=== PATIENT | female | born 1975 | race Caucasian/White ===

== ENCOUNTER → 2017-12-06 | Outpatient (CLI) | payer OTHER ==
[2017-12-06 10:18] VITALS: BP 150/107; PULSE 90; RESP 18; TEMP 96.7; BMI 36.1
--- NOTE | 2017-12-06 11:24 | P.HPOB ---
History of Present Illness H&P Date: 12/06/17 Chief Complaint: Patient is here for her routine gynecologic exam and mammogram. This is a 42-year-old G2 PII with an LMP of 11/28/2017. She has a Paragard IUD in place. She is here to establish with this office. She states it was inserted around 9 years ago and will be due to be changed later this year. She states or periods are fairly heavy especially on the 2nd to 4th day of her menses. She has to change your protection up to every 30 minutes on those heavy days. It is been about 2 years since her last pelvic exam. She is no longer interested in having children. Review of Systems She has lost 60 pounds with diet exercise and Adipex. She denies respiratory, cardiac, or G.I. problems. Past Medical History Past Medical History: GERD/Reflux, Thyroid Disorder Additional Past Medical History / Comment(s): occasional vomiting also History of Any Multi-Drug Resistant Organisms: None Reported Additional Past Surgical History / Comment(s): wisdom teeth removed, carpal tunnel release bilateral 2017, Heightoff Past Anesthesia/Blood Transfusion Reactions: No Reported Reaction Past Psychological History: No Psychological Hx Reported Smoking Status: Never smoker Past Alcohol Use History: Occasional Past Drug Use History: None Reported - Past Family History Mother Family Medical History: Hypertension Father History Unknown: Yes Medications and Allergies Home Medications Medication Instructions Recorded Confirmed Type Levothyroxine Sodium [Synthroid] 150 mcg PO DAILY 03/03/16 12/06/17 History Omeprazole 20 mg PO DAILY #90 cap 03/09/16 12/06/17 Rx Phentermine HCl [Adipex-P] 37.5 mg PO QAM 12/06/17 12/06/17 History buPROPion HCL [Wellbutrin XL] 300 mg PO DAILY 12/06/17 12/06/17 History Allergies Allergy/AdvReac Type Severity Reaction Status Date / Time No Known Allergies Allergy Verified 12/06/17 10:32 Exam - Vital Signs Vital signs: Vital Signs Temp Pulse Resp BP 12/06/17 10:12 96.7 F L 90 18 150/107 Intake and Output 12/05/17 12/06/17 12/06/17 22:59 06:59 14:59 Other: Weight 101.605 kg Patient Weight 12/07/17 06:59 Weight 101.605 kg Height 5'6". BMI 36. This is a well-developed heavyset white female who is alert and oriented times 3 in no acute distress. HEENT: Within normal limits. NECK: Supple without mass or thyromegaly. CHEST AND LUNGS: Clear to auscultation. HEART: Regular rate and rhythm. BREASTS: Are without mass or discharge. AXILLARY EXAM: Negative for adenopathy. BACK: Negative for CVA tenderness. ABDOMEN: Soft, nontender, without palpable masses. PELVIC EXAM: Normal external genitalia. Cervix reveals an IUD string protruding from the cervix approximately 1.5 cm. The vagina appears normal with no unusual discharge. There is no evidence of prolapse. The uterus is midposition , nongravid size and nontender. There are no palpable adnexal masses or tenderness. RECTAL EXAM: negative for mass or tenderness and is negative for occult blood. EXTREMITIES: Nontender. IMPRESSION: 1. 42-year-old gynecologic healthy female doing well with the ParaGard IUD. 2. Elevated blood pressure. 3. Undesired fertility. 4. Mild hypermenorrhea. This may be related to the ParaGard IUD. PLAN: 1. Pap smear was performed. 2. Self breast examination was discussed. 3. GC and Chlamydia screening from the cervix was obtained. 4. Trial of meclofenamate sodium 100 mg TID PRN for heavy menstrual flow up to 6 days per cycle. 5. We have discussed control options including the Mirena IUD and tubal sterilization as well as vasectomy for her partner. She would like a referral for tubal sterilization. She will also consider the Mirena IUD as a 2nd option. We will make a referral for this. 6. Baseline screening mammogram will be done today. 7. She will return in one year.
--- NOTE | 2017-12-06 11:45 | MM ---
Reason for exam: screening (asymptomatic). Baseline mammogram. Physical Findings: Dr. Parnell did not find any significant physical abnormalities on exam. MG Screening Mammo w CAD Bilateral CC and MLO view(s) were taken. There are scattered fibroglandular densities. There is no discrete abnormality. These results were verbally communicated with the patient and result sheet given to the patient on 12/06/17. ASSESSMENT: Negative, BI-RAD 1 RECOMMENDATION: Routine screening mammogram of both breasts in 1 year.
[2017-12-07 16:21] LABS: C. trachomatis,PCR Negative (Neg,Equiv); Chlamydia trachomatis Source Cervix; N. gonorrhoeae,PCR Negative (Neg,Equiv); Neisseria Source Cervix
== END | disposition home or self-care (01) ==
LOC: WWCWWP 09:44
PROVIDERS: ATTEND Obstetrics & Gynecology
DX: Z12.31 Encounter for screening mammogram for malignant neoplasm of breast (principal)
CPT/HCPCS: 77067; 87491; 87591

== ENCOUNTER → 2018-01-08 | Outpatient (CLI) | payer OTHER ==
[2018-01-08 10:53] LABS: Basophils # (A) 0.1 k/uL (0-0.2); Basophils % (A) 1 %; Eosinophils # (A) 0.3 k/uL (0-0.7); Eosinophils % (A) 2 %; HCT 41.5 % (34.0-46.0); HGB 12.9 gm/dL (11.4-16.0); Hypochromasia Slight; Lymphocytes # (A) 2.6 k/uL (1.0-4.8); Lymphocytes % (A) 24 %; MCH 25.8 pg (25.0-35.0); MCHC 31.1 g/dL (31.0-37.0); MCV 82.8 fL (80.0-100.0); Mean Platelet Volume 7.8; Monocytes # (A) 0.4 k/uL (0-1.0); Monocytes % (A) 4 %; Neutrophils # (A) 7.2 k/uL (1.3-7.7); Neutrophils % (A) 68 %; Platelet Count 367 k/uL (150-450); RBC 5.01 m/uL (3.80-5.40); RDW 14.6 % (11.5-15.5); WBC 10.6 k/uL (3.8-10.6)
== END | disposition home or self-care (01) ==
LOC: LABPAT 10:30
PROVIDERS: ATTEND Obstetrics & Gynecology Obstetrics
DX: Z01.812 Encounter for preprocedural laboratory examination (principal); N92.0 Excessive and frequent menstruation with regular cycle
CPT/HCPCS: 36415; 85025

== ENCOUNTER 2018-01-22 06:03 | Day surgery (SDC) | payer OTHER ==
[2018-01-11 15:17] VITALS: BMI 35.0
[~2018-01-22 06:03] MED LIST: DEXAMETHASONE SOD PHOSPHATE 10 MG/ML 1 ML VIAL IV ONE; LACTATED RINGERS 1,000 ML IV SCH; ONDANSETRON ODT 4 MG TAB PO ONE; Pre Op ABX Message 1 EACH MISC MISCELLANE ONE
[2018-01-22] MEDS ORDERED: LIDOCAINE 1% 20 ML VIAL (10MG/ML) FOR IV START INTRADERMA ONE (06:45)
[2018-01-22] MEDS ORDERED: BUPIVACAINE (PF) 0.25% 30 ML VIAL SQ ONE ×3 (07:40→08:05)
[2018-01-22] MEDS ORDERED: LIDOCAINE 2% GEL 5 ML TUBE TOPICAL ONE ×2 (07:49→08:05)
[2018-01-22] MEDS ORDERED: KETOROLAC 30 MG/ML 1 ML VIAL ONE (07:50)
[2018-01-22] MEDS ORDERED: LIDOCAINE 1% INJ 10MG/ML (20 ML MDV) ONE (07:50)
[2018-01-22] MEDS ORDERED: NEOSTIGMINE 1 MG/ML 10 ML VIAL ONE (07:50)
[2018-01-22] MEDS ORDERED: fentaNYL (PF) 50 MCG/ML 2 ML AMP ONE (07:50)
[2018-01-22] MEDS ORDERED: PROPOFOL 10 MG/ML 20 ML VIAL IV ONE (07:50)
[2018-01-22] MEDS ORDERED: ROCURONIUM BROMIDE 10 MG/ML 10 ML VIAL IV ONE (07:50)
[2018-01-22] MEDS ORDERED: GLYCOPYRROLATE 0.2 MG/ML 2 ML VIAL ONE (07:50)
[2018-01-22] MEDS ORDERED: SUCCINYLCHOLINE CHLORIDE 100 MG/5 ML SYR IV ONE (07:50)
[2018-01-22] MEDS ORDERED: MIDAZOLAM 2 MG/2 ML VIAL ONE (07:50)
[2018-01-22 08:53] VITALS: TEMP 97.7
[2018-01-22] MEDS ORDERED: ONDANSETRON 4 MG/2 ML VIAL IVP ONE (09:04)
[2018-01-22] MEDS: MORPHINE SULFATE 4 MG/0.8 ML SYRINGE (INJ) IV PRN ×2 (09:04→09:11)
[2018-01-22] MEDS ORDERED: LACTATED RINGERS 1,000 ML IV ONE (09:15)
[2018-01-22] MEDS ORDERED: MEPERIDINE 50 MG/ML SYRINGE IVP ONE (09:21)
--- NOTE | 2018-01-22 09:41 | P.OP ---
Date of Procedure: 01/22/18 Preoperative Diagnosis: Menorrhagia, family status complete, undesired fertility Postoperative Diagnosis: Same Procedure(s) Performed: Laparoscopic tubal ligation with Falope-Rings, endometrial ablation with NovaSure, hysteroscopy, dilation and curettage Anesthesia: SVETLANA Surgeon: Heidy Valencia Estimated Blood Loss (ml): 10 IV fluids (ml): 600 Urine output (ml): 100 Pathology: other (Endometrial curettings) Condition: stable Disposition: PACU Indications for Procedure: Heavy menstrual bleeding, family status complete Operative Findings: Normal uterus tubes and ovaries were appreciated grossly on laparoscopy, the endometrial cavity was normal in nature with a proliferative endometrium, IUD was removed prior to the procedure. Total cavity length of 5 with a 3.9 power of 107 total cycle time 75 seconds Description of Procedure: Patient was seen in the preoperative area and informed consent was obtained. Risks were reviewed including but not not limited to infection, bleeding, damage to bladder, bowel, uterine perforation. Patient stated understanding and informed consent was obtained. Next Patient was taken to the operating room where general anesthesia was obtained without difficulty by the anesthesia department. She was prepped and draped in the normal sterile fashion in the dorsal lithotomy position. A red rubber catheter was then used to drain the bladder of clear yellow urine. A weighted speculum was placed in the posterior vaginal vault the anterior lip of the cervix was visualized and grasped with a single-tooth tenaculum. An acorn uterine manipulator was advanced into the cervix as a means to manipulate the uterus throughout the procedure. Next attention was then turned to the patient' s abdomen where the umbilical fold a small skin incision is made. At this point I decreased needle is placed into the incision and toward the peritoneum once the Veress needle was deemed to be in the appropriate position with a drop in CO2 pressure with insufflation of CO2 gas CO2 insufflation was allowed to occur. 4 L of gas were used to obtain pneumoperitoneum. At this point a 5 mm trocar and sleeve with a global ceo scope in place placed through the skin incision and toward the pneumoperitoneum under direct visualization. The above noted findings were then visualized. A second port site was placed in the right lower quadrant this is an 8 mm port placed under direct visualization. The Falope ring applicator was then placed through this incision and the left fallopian tube was grasped and operated according to Falope ring message and delivery service pricer instructions. This was then repeated in the opposite side. Hemostasis was appreciated both fallopian tubes were occluded pictures were taken. All incisions were then removed from the patient's abdomen and the skin incisions were closed with 4-0 Vicryl in a subcuticular infection fashion, strips and sterile dressings were applied as needed. Attention then turned to the patient's vaginal vault the strings from the prior ParaGard IUD were visualized and this was removed intact without difficulty with a ring forceps. The endocervical canal was then dilated to 18-[place], and hysteroscope was placed through the cervix and toward the endometrial cavity a proliferative cavity was noted. Pictures were taken and the hysteroscope was removed and sharp curettage was then performed until gritty texture was noted all 4 quadrants of the uterine cavity. The NovaSure device was then opened and set to the uterine measurements. After a cavity assessment was completed the NovaSure cycle was allowed to complete for a total of 75 seconds. Afterwards the NovaSure device was removed without difficulty the single-tooth tenaculum was taken off of the anterior lip of the cervix and hemostasis was appreciated. COUNTS were correct 2 patient tolerated procedure well and was taken to the recovery room awake in stable condition.
[2018-01-22] MEDS ORDERED: Acetaminophen-Codeine 300-30mg TAB PO ONE (10:02)
[2018-01-22 10:54] VITALS: RESP 18
[2018-01-22 11:52] VITALS: BP 120/65; PULSE 66
== END 2018-01-22 11:35 | disposition home or self-care (01) ==
LOC: OR 06:03
PROVIDERS: ATTEND Obstetrics & Gynecology Obstetrics
DX: N92.0 Excessive and frequent menstruation with regular cycle (principal); Z30.2 Encounter for sterilization; Z30.432 Encounter for removal of intrauterine contraceptive device; K21.9 Gastro-esophageal reflux disease without esophagitis; I10 Essential (primary) hypertension; E07.9 Disorder of thyroid, unspecified; Z79.83 Long term (current) use of bisphosphonates; Z79.890 Hormone replacement therapy; Z79.899 Other long term (current) drug therapy
CPT/HCPCS: 81025; 88305; 58671; 58563; J2250; J1100; J2710; J2175; J2405; J2001; J3010; J1885; J0330; J2704; J2270

== ENCOUNTER → 2020-11-24 | Outpatient (CLI) | payer OTHER ==
--- NOTE | 2020-11-24 17:23 | P.HPOB ---
History of Present Illness H&P Date: 11/24/20 Chief Complaint: The patient is here for her routine gynecologic exam. This is a 45-year-old with an LMP of 2018. The patient is status post tubal ligation and endometrial ablation done in 2018. She states she has not had menstrual flow since her ablation and has had rare spotting after the ablation. She does feel warm frequently but no significant hot flashes. She has been experiencing urinary leakage with laughing, coughing, sneezing, or standing up. She has also noticed some leakage at night where she wakes up wet. She denies any significant urge incontinence. Review of Systems She has lost about 20 pounds over the past 3 years. She denies respiratory, cardiac, or GI problems. : Some stress urinary incontinence as in the HPI. Past Medical History Past Medical History: GERD/Reflux, Thyroid Disorder History of Any Multi-Drug Resistant Organisms: None Reported Past Surgical History: Uterine Ablation Additional Past Surgical History / Comment(s): wisdom teeth removed, carpal tunnel release bilateral 2016. D&C, H/S, Novasure endometrial ablation 2018. Past Anesthesia/Blood Transfusion Reactions: No Reported Reaction Past Psychological History: No Psychological Hx Reported Smoking Status: Never smoker Past Alcohol Use History: Rare (5 per year) Past Drug Use History: None Reported Additional History: She is single and has been with her partner since 2005. They live together. 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 - Past Family History Mother Family Medical History: Hypertension Father History Unknown: Yes Medications and Allergies Home Medications Medication Instructions Recorded Confirmed Type Levothyroxine Sodium [Synthroid] 175 mcg PO DAILY 03/03/16 11/24/20 History buPROPion HCL [Wellbutrin XL] 300 mg PO DAILY 12/06/17 11/24/20 History Nf-Losartan Dose Unknown 1 tab PO QAM 01/11/18 11/24/20 History Omeprazole 20 mg PO DAILY PRN 01/11/18 11/24/20 History Lisdexamfetamine Dimesylate 40 mg PO QAM 11/24/20 11/24/20 History [Vyvanse] Allergies Allergy/AdvReac Type Severity Reaction Status Date / Time No Known Allergies Allergy Verified 11/24/20 15:57 Exam Vital Signs Temp Pulse Resp BP Pulse Ox 11/24/20 15:57 98.5 F 85 18 141/94 100 Intake and Output 11/24/20 11/24/20 11/24/20 06:59 14:59 22:59 Other: Weight 110.677 kg Height 5 feet 6 inches, weight 244 pounds, BMI 39.4. This is a well-developed well-nourished heavyset white female who is alert and oriented times 3 in no acute distress. HEENT: Within normal limits. NECK: Supple without mass or thyromegaly. CHEST AND LUNGS: Clear to auscultation. HEART: Regular rate and rhythm. BREASTS: Are without mass or discharge. AXILLARY EXAM: Negative for adenopathy. BACK: Negative for CVA tenderness. ABDOMEN: Soft, nontender, without palpable masses. PELVIC EXAM: Normal external genitalia. Cervix and vagina appear normal. There is no unusual discharge. There is no evidence of prolapse. There is no evidence of cystocele at rest or with Valsalva. There is mild urethral mobility with cough and Valsalva. No urinary leakage was demonstrated. The uterus is midposition, nongravid size and nontender. There are no palpable adnexal masses or tenderness. RECTAL EXAM: Rectovaginal exam is negative for mass or tenderness and is negative for occult blood. There is good sphincter tone. EXTREMITIES: Nontender. IMPRESSION: 1. 45-year-old female status post tubal ligation and has been amenorrheic since her endometrial ablation. 2. Normal gynecologic exam. 3. Stress urinary incontinence with mild urethral mobility with no evidence of cystocele. PLAN: 1. Pap smear cotest was performed. 2. Self breast awareness was discussed with the patient. 3. Screening mammogram is due and the order slip was given to the patient for this. 4. We have had a long discussion regarding urinary incontinence including the different types of incontinence as well as possible treatments. At this time I am recommending nonsurgical management with kegal exercises and timed voids. I have reviewed techniques for these. She will also try to void prior to going to bed as well as avoiding significant fluid in the evening. If she is having significant urinary leakage still, we can consider referral to a gynecologic urologist for evaluation and possible treatment. 5. She was advised to return in one year for her annual well woman exam and as needed. Total time with patient: 35 minutes.
--- NOTE | 2020-12-08 15:38 | P.PN ---
Progress Note - Text Progress Note Date: 12/08/20 OUTPATIENT FOLLOW-UP NOTE TEST(S)/RESULTS: Test results from 11-24-20 include negative Pap smear, positive high-risk HPV testing(-16,-18), and on the Pap smear, a note was made that there was a shift in the vaginal cristy suggestive of bacterial vaginosis. METHOD OF NOTIFICATION: The patient was notified by phone. PATIENT COMMENTS: The patient states that she and her boyfriend broke up, but got back together about 1 year ago. She thinks that this may have led to the exposure to HPV. DIAGNOSIS: Negative Pap smear with positive high-risk HPV testing(-16,-18). No bacterial vaginosis symptoms. DISCUSSION: The patient was instructed to call if she develops any vaginal symptoms such as odor or discharge. We will plan on repeating the Pap smear cotest in one year. I have stressed the importance of limiting sexual partners and staying in a monogamous relationship. The 5 year GURWINDER-3 or greater risk is 4.8% and according to ASCCP guidelines, follow-up should be in one year. PLAN: She was advised to return in one year for her annual well woman exam.
== END | disposition home or self-care (01) ==

== ENCOUNTER 2020-12-20 15:25 | Emergency (ER) | payer OTHER ==
[2020-12-20 15:31] VITALS: BP 137/89; PULSE 78; RESP 18; TEMP 98.1
--- NOTE | 2020-12-20 15:53 | XR ---
Result: History: Pain. Comparison: None available. Technique: 3 views of the left ankle. Findings: There is soft tissue edema about the ankle. No acute fracture or dislocation is seen. The visualized osseous structures are in anatomic alignment. The talar dome is intact and the ankle mortise is con gruent. There is mild osteoarthritis and mild to moderate calcaneal enthesopathy. Impression: Soft tissue edema without acute osseous abnormality.
--- NOTE | 2020-12-20 16:11 | ED ---
Lower Extremity Injury HPI - General Chief Complaint: Extremity Injury, Lower Stated Complaint: ANKLE PAIN LEFT Time Seen by Provider: 12/20/20 16:02 Source: patient Mode of arrival: ambulatory Limitations: no limitations - History of Present Illness Initial Comments: Patient is a 45-year-old female presenting to the emergency Department with complaints of left ankle pain since yesterday. [place] ice and rolled her left ankle. Patient states she got home today and wanted to make sure she did not fracture her ankle. Denies any previous injuries or surgeries of her left ankle. She denies any other complaints from this fall. - Related Data Allergies Allergy/AdvReac Type Severity Reaction Status Date / Time No Known Allergies Allergy Verified 12/20/20 15:30 Review of Systems ROS Statement: Those systems with pertinent positive or pertinent negative responses have been documented in the HPI. ROS Other: All systems not noted in ROS Statement are negative. General Exam - General Exam Comments Initial Comments: GENERAL: Patient is well-developed and well-nourished. Patient is nontoxic and in no acute distress. HEAD: Atraumatic, normocephalic. EYES: Pupils equal round and reactive to light, extraocular movements intact, sclera anicteric, conjunctiva are normal. Eyelids were unremarkable. ENT: Nares patent, oropharynx clear without exudates. Moist mucous membranes. NECK: Normal range of motion, supple without lymphadenopathy or JVD. LUNGS: Unlabored respirations. Breath sounds clear to auscultation bilaterally and equal. No wheezes rales or rhonchi. HEART: Regular rate and rhythm without murmurs, rubs or gallops. ABDOMEN: Soft, nontender, normoactive bowel sounds. No guarding, no rebound. No masses appreciated. : Deferred MUSCULOSKELETAL: Patient has pain with palpation of the left lateral malleolus, slightly decreased range of motion secondary to pain and swelling. She does have mild to moderate swelling present, neurovascular intact. She is able to ambulate. No clubbing or cyanosis. NEUROLOGICAL: Patient is alert and oriented x 3. Motor and sensory are also intact. Cranial nerves II through XII grossly intact. Symmetrical smile. Normal speech, normal gait. PSYCH: Normal mood, normal affect. SKIN: Warm, Dry, normal turgor, no rashes or lesions noted. Limitations: no limitations Course Vital Signs 12/20/20 15:27 Temperature 98.1 F Pulse Rate 78 Respiratory 18 Rate Blood Pressure 137/89 O2 Sat by Pulse 99 Oximetry Medical Decision Making - Medical Decision Making Patient is a 45-year-old female here for left ankle pain after she slipped yesterday rolling her ankle. X-rays revealed no acute fractures dislocations today. I will give her an Aircast and Sam wrap for support. Work note was given as well. Patient is stable for discharge. Patient is in agreement with this plan of care. Return parameters were discussed with the patient and they verbalized understanding. Case discussed with Dr. Gloria. Disposition Clinical Impression: Left ankle sprain Disposition: HOME SELF-CARE Condition: Stable Instructions (If sedation given, give patient instructions): Ankle Sprain (ED) Additional Instructions: Please return to the Emergency Department if symptoms worsen or any other concerns. Use Sam wrap for swelling control, elevate above your heart. Use ice, ibuprofen for discomfort. May wear ankle brace for the next 1-2 weeks for support. If symptoms persist after 1-2 weeks, follow up with orthopedics. Is patient prescribed a controlled substance at d/c from ED?: No Referrals: Stuart Sahu DO [Primary Care Provider] - 1-2 days Champ Gaxiola DO [Doctor of Osteopathic Medicine] - 1-2 days
== END 2020-12-20 16:28 | disposition home or self-care (01) ==
LOC: EC 15:25 → MERGE 15:25 → EC 16:28
DX: S93.402A Sprain of unspecified ligament of left ankle, initial encounter (principal); W00.0XXA Fall on same level due to ice and snow, initial encounter
CPT/HCPCS: 99283

== ENCOUNTER → 2021-07-14 | Outpatient (CLI) | payer OTHER ==
[2021-07-14 08:11] VITALS: BP 130/85; PULSE 86; RESP 16; TEMP 98.6
--- NOTE | 2021-07-14 08:56 | P.PN ---
Progress Note - Text Progress Note Date: 07/14/21 Chief Complaint: Small bumps near the vaginal opening 2 months HPI: This is a 45-year-old with an LMP of 2018. The patient is status post tubal ligation and had an endometrial ablation in 2018. The patient was seen on 11/24/2020 for her routine gynecologic exam. Pap smear was negative and high risk HPV testing was positive with negative types 16 and 18. 2 months ago she started noticing small bumps in the perineal area at the edge of the posterior introitus. They are not painful and she denies any blisters. She denies fever or vaginal discharge. She states she had been with her boyfriend for several years but had broken up for a while and had gotten back together. It was soon after that that she tested positive for the HPV. She no longer is with that boyfriend. She is not seeing anybody at this time. ROS: She denies respiratory, cardiac, or GI problems. : As above. She denies any urinary symptoms. PE: Blood pressure: 130/85, Height: 5 feet 5-1/2 inches, Weight: 136 pounds, Temperature: 98.6, Pulse: 86. Pulse oximeter 100% This is a well developed, well nourished, white female who is alert and orientedx3, in no acute distress. External genitalia: There are small firm bumps each measuring approximately 2 mm at the posterior introitus extending a small distance into the perineum. 3 are to the left of the midline and 3 are just to the right of the midline. There are no other lesions noted on the vulva or perianal areas. Impression: 1. 45-year-old female with genital warts (condyloma acuminata)on the anterior aspect of the perineum bordering the posterior introitus. 2. Positive high-risk HPV testing with negative Pap smear on her Pap smear cotest in November 2020. Plan: 1. We have had a long discussion regarding the nature of genital warts and the relationship with HPV. 2. We have discussed various treatment options including observation, office treatments and home prescription treatments. She would like to use a home prescription treatment. She will be prescribed Aldara cream which she will apply 3 times a week at bedtime. The electronic perception will be sent to my her pharmacy in [place]. She continues this up to 4 months. 3. She will return in approximate 2-3 months for reevaluation and as needed. Time spent with the patient: 25 minutes
== END | disposition home or self-care (01) ==
LOC: WWCWWP 07:51
PROVIDERS: ATTEND Obstetrics & Gynecology
DX: Z53.9 Procedure and treatment not carried out, unspecified reason (principal)

== ENCOUNTER 2022-07-06 15:06 | Emergency (ER) | payer OTHER ==
[2022-07-06 15:15] VITALS: RESP 16
[2022-07-06 15:43] LABS: Basophils # (A) 0.1 k/uL (0-0.2); Basophils % (A) 0 %; Eosinophils # (A) 0.2 k/uL (0-0.7); Eosinophils % (A) 1 %; HGB 15.9 gm/dL (11.4-16.0); Lymphocytes # (A) 1.4 k/uL (1.0-4.8); Lymphocytes % (A) 9 %; MCH 32.3 pg (25.0-35.0); MCHC 34.7 g/dL (31.0-37.0); MCV 93.1 fL (80.0-100.0); Mean Platelet Volume 7.8; Monocytes # (A) 0.5 k/uL (0-1.0); Monocytes % (A) 4 %; Neutrophils # (A) 12.9 k/uL (1.3-7.7); Neutrophils % (A) 85 %; Platelet Count 356 k/uL (150-450); RBC 4.94 m/uL (3.80-5.40); RDW 12.6 % (11.5-15.5); WBC 15.2 k/uL (3.8-10.6)
[2022-07-06 15:54] LABS: INR 0.9 (<1.2); Partial Thromboplastin Time 26.2 sec (22.0-30.0); Prothrombin Time 10.3 sec (9.0-12.0)
[2022-07-06 15:57] LABS: ALT 22 U/L (4-34); AST 27 U/L (14-36); African American GFR (CKD) >90 (>60 ml/min/1.73 sqM); Albumin 4.8 g/dL (3.5-5.0); Alkaline Phosphatase 65 U/L (38-126); Anion Gap 13 mmol/L; Blood Urea Nitrogen 11 mg/dL (7-17); Calcium 9.5 mg/dL (8.4-10.2); Carbon Dioxide 25 mmol/L (22-30); Chloride 100 mmol/L (98-107); Glucose 87 mg/dL (74-99); Lipase 59 U/L (23-300); Magnesium 1.9 mg/dL (1.6-2.3); Non-African American GFR(CKD) 80 (>60 ml/min/1.73 sqM); Potassium 4.3 mmol/L (3.5-5.1); Sodium 138 mmol/L (137-145); Total Bilirubin 0.6 mg/dL (0.2-1.3); Total Protein 7.6 g/dL (6.3-8.2)
[2022-07-06 16:02] LABS: Appearance,Urine Cloudy (Clear); Bacteria,Urine Rare /hpf; Bilirubin,Urine Negative (Negative); Blood,Urine Small (Negative); Color,Urine Yellow; Glucose,Urine (UA) Negative (Negative); Hyaline Casts,Urine 3 /lpf (0-2); Ketones,Urine Negative (Negative); Leukocyte Esterase,Urine Negative (Negative); Mucus,Urine Many /hpf; Nitrite,Urine Negative (Negative); PH, Urine 6.5 (5.0-8.0); Protein,Urine 1+ (Negative); RBC,Urine 3 /hpf (0-5); Squamous Epithelial Cell,Urine 31 /hpf (0-4); WBC,Urine 2 /hpf (0-5)
[2022-07-06] MEDS ORDERED: SODIUM CHLORIDE 0.9% 1,000 ML IV STA (19:14)
[2022-07-06] MEDS ORDERED: ONDANSETRON 4 MG/2 ML VIAL IVP STA (19:14)
[2022-07-06] MEDS ORDERED: HYDROmorphone 0.5 MG/0.5 ML SYRINGE IVP STA ×2 (19:14→21:40)
--- NOTE | 2022-07-06 19:24 | ED ---
General Adult HPI - General Chief complaint: GI Bleed Stated complaint: ABD pain Time Seen by Provider: 07/06/22 18:57 Source: patient, RN notes reviewed Mode of arrival: ambulatory Limitations: no limitations - History of Present Illness Initial comments: 46-year-old female presents to the emergency Department with complaints of bloody diarrhea and abdominal cramping, onset 18 hours prior to arrival. Reports five episodes of bloody diarrhea; only the first episode was accompanied by formed stool. Describes abdominal cramping as located in the mid abdomen extending to the flank and around the back. Discomfort is accompanied by nausea, but no vomiting. Did not take anything to treat her symptoms prior to arrival. Patient states she has a history of diverticulitis, but has never had blood in her stool. Does not take anticoagulants and uses NSAIDs sparingly. Denies fever, chills, dizziness, headache, chest pain, palpitations, shortness of b reath, dysuria, hematuria, or lower extremity edema. - Related Data Home Medications Medication Instructions Recorded Confirmed buPROPion HCL [Wellbutrin XL] 300 mg PO DAILY 12/06/17 07/06/22 Lisdexamfetamine Dimesylate 40 mg PO DAILY 11/24/20 07/06/22 [Vyvanse] Losartan Potassium 50 mg PO DAILY 07/06/22 07/06/22 Phentermine HCl 37.5 mg PO DAILY 07/06/22 07/06/22 hydroCHLOROthiazide [Hydrodiuril] 12.5 mg PO DAILY 07/06/22 07/06/22 Previous Rx's Medication Instructions Recorded Ondansetron Odt [Zofran Odt] 4 mg PO Q8HR PRN #10 tab 07/06/22 Allergies Allergy/AdvReac Type Severity Reaction Status Date / Time No Known Allergies Allergy Verified 07/06/22 21:34 Review of Systems ROS Statement: Those systems with pertinent positive or pertinent negative responses have been documented in the HPI. ROS Other: All systems not noted in ROS Statement are negative. Past Medical History Past Medical History: GERD/Reflux, Thyroid Disorder Additional Past Medical History / Comment(s): occasional vomiting also History of Any Multi-Drug Resistant Organisms: None Reported Past Surgical History: Uterine Ablation Additional Past Surgical History / Comment(s): wisdom teeth removed, carpal tunnel release bilateral 2016. D&C, H/S, Novasure endometrial ablation 2018. Past Anesthesia/Blood Transfusion Reactions: No Reported Reaction Past Psychological History: No Psychological Hx Reported Smoking Status: Never smoker Past Alcohol Use History: Rare Past Drug Use History: None Reported - Past Family History Mother Family Medical History: Hypertension Father History Unknown: Yes General Exam Limitations: no limitations (Well-developed, well-nourished female in no acute distress. Initial temperature 98.2, pulse 93, respirations 16, blood pressure 170/113, pulse ox 100% on room air.) General appearance: alert, in no apparent distress ENT exam: Present: normal oropharynx, mucous membranes moist Respiratory exam: Present: normal lung sounds bilaterally. Absent: respiratory distress, wheezes, rales, rhonchi, stridor, chest wall tenderness Cardiovascular Exam: Present: regular rate, normal rhythm, normal heart sounds. Absent: systolic murmur, diastolic murmur, rubs, gallop, clicks GI/Abdominal exam: Present: soft, tenderness (Generalized tenderness upon palpation of the mid and lower abdomen), normal bowel sounds. Absent: distended, guarding, rebound, rigid Extremities exam: Present: normal inspection, full ROM, normal capillary refill. Absent: tenderness, pedal edema, joint swelling, calf tenderness Back exam: Present: normal inspection. Absent: CVA tenderness (R), CVA tenderness (L) Neurological exam: Present: alert, oriented X3, CN II-XII intact Psychiatric exam: Present: normal affect, normal mood Skin exam: Present: warm, dry, intact, normal color. Absent: rash Course Vital Signs 07/06/22 07/06/22 07/06/22 15:12 21:49 21:51 Temperature 98.2 F 98.0 F 98.0 F Pulse Rate 93 85 85 Respiratory 16 16 16 Rate Blood Pressure 178/113 153/107 153/107 O2 Sat by Pulse 100 100 100 Oximetry - Reevaluation(s) Reevaluation #1: 07/06/22 21:45 Upon reassessment, patient reports improvement in overall discomfort. Repeat vital signs were obtained. The patient remains hypertensive, it is much improved and patient did not take her home blood pressure medication as prescribed this morning because she was feeling poorly. She is encouraged to take it upon arrival home. Results of laboratory studies and CT were discussed with patient. She corine hung understanding. Medical Decision Making - Medical Decision Making This is a 46-year-old female with a past medical history of diverticulitis and hypertension who presents to the emergency department for evaluation of bloody diarrhea. Upon exam, patient is well-appearing and in no acute distress. She does complain of moderate discomfort related to abdominal cramping. Patient was given IV fluids, Dilaudid, and Zofran with improvement. She does provide a mucousy bloody stool sample which was negative for C. diff. Laboratory studies were reviewed. Patient does have an elevated WBC 15,000 which is likely reactive to diarrhea process. Given that patient has not had any recent travel or antibiotic treatment, this is more likely inflammatory than infectious. CT shows nonspecific colitis. Results were discussed with patient. She is encouraged to begin taking a probiotic. Discussed dietary modifications and electrolyte solution intake. She will be prescribed Zofran for nausea. Instructed to follow up with her PCP for a recheck in 48 hours. Strict return parameters were discussed with patient. She verbalizes understanding and agrees with this plan. Attending: Edward. - Lab Data Result diagrams: 07/06/22 15:27 07/06/22 15:27 Lab Results 07/06/22 07/06/22 07/06/22 Range/Units 15:20 15:27 15:27 WBC 15.2 H (3.8-10.6) k/uL RBC 4.94 (3.80-5.40) m/uL Hgb 15.9 (11.4-16.0) gm/dL Hct 46.0 (34.0-46.0) % MCV 93.1 (80.0-100.0) fL MCH 32.3 (25.0-35.0) pg MCHC 34.7 (31.0-37.0) g/dL RDW 12.6 (11.5-15.5) % Plt Count 356 (150-450) k/uL MPV 7.8 Neutrophils % 85 % Lymphocytes % 9 % Monocytes % 4 % Eosinophils % 1 % Basophils % 0 % Neutrophils # 12.9 H (1.3-7.7) k/uL Lymphocytes # 1.4 (1.0-4.8) k/uL Monocytes # 0.5 (0-1.0) k/uL Eosinophils # 0.2 (0-0.7) k/uL Basophils # 0.1 (0-0.2) k/uL PT 10.3 (9.0-12.0) sec INR 0.9 (<1.2) APTT 26.2 (22.0-30.0) sec Sodium (137-145) mmol/L Potassium (3.5-5.1) mmol/L Chloride (98-107) mmol/L Carbon Dioxide (22-30) mmol/L Anion Gap mmol/L BUN (7-17) mg/dL Creatinine (0.52-1.04) mg/dL Est GFR (CKD-EPI)AfAm (>60 ml/min/1.73 sqM) Est GFR (CKD-EPI)NonAf (>60 ml/min/1.73 sqM) Glucose (74-99) mg/dL Calcium (8.4-10.2) mg/dL Magnesium (1.6-2.3) mg/dL Total Bilirubin (0.2-1.3) mg/dL AST (14-36) U/L ALT (4-34) U/L Alkaline Phosphatase (38-126) U/L Troponin I (0.000-0.034) ng/mL Total Protein (6.3-8.2) g/dL Albumin (3.5-5.0) g/dL Lipase (23-300) U/L Urine Color Urine Appearance (Clear) Urine pH (5.0-8.0) Ur Specific [place] (1.001-1.035) Urine Protein (Negative) Urine Glucose (UA) (Negative) Urine Ketones (Negative) Urine Blood (Negative) Urine Nitrite (Negative) Urine Bilirubin (Negative) Urine Urobilinogen (<2.0) mg/dL Ur Leukocyte Esterase (Negative) Urine RBC (0-5) /hpf Urine WBC (0-5) /hpf Ur Squamous Epith Cells (0-4) /hpf Urine Bacteria (None) /hpf Hyaline Casts (0-2) /lpf Urine Mucus (None) /hpf Stool Occult Blood (Negative) C. difficile (EIA) Intrp (Negative) Blood Type O Negative Blood Type Recheck O Neg Bld Type Recheck Status No Antibody Screen NEGATIVE Spec Expiration Date 07/09/2022231907/06/22 07/06/22 07/06/22 Range/Units 15:27 15:27 15:27 WBC (3.8-10.6) k/uL RBC (3.80-5.40) m/uL Hgb (11.4-16.0) gm/dL Hct (34.0-46.0) % MCV (80.0-100.0) fL MCH (25.0-35.0) pg MCHC (31.0-37.0) g/dL RDW (11.5-15.5) % Plt Count (150-450) k/uL MPV Neutrophils % % Lymphocytes % % Monocytes % % Eosinophils % % Basophils % % Neutrophils # (1.3-7.7) k/uL Lymphocytes # (1.0-4.8) k/uL Monocytes # (0-1.0) k/uL Eosinophils # (0-0.7) k/uL Basophils # (0-0.2) k/uL PT (9.0-12.0) sec INR (<1.2) APTT (22.0-30.0) sec Sodium 138 (137-145) mmol/L Potassium 4.3 (3.5-5.1) mmol/L Chloride 100 (98-107) mmol/L Carbon Dioxide 25 (22-30) mmol/L Anion Gap 13 mmol/L BUN 11 (7-17) mg/dL Creatinine 0.88 (0.52-1.04) mg/dL Est GFR (CKD-EPI)AfAm >90 (>60 ml/min/1.73 sqM) Est GFR (CKD-EPI)NonAf 80 (>60 ml/min/1.73 sqM) Glucose 87 (74-99) mg/dL Calcium 9.5 (8.4-10.2) mg/dL Magnesium 1.9 (1.6-2.3) mg/dL Total Bilirubin 0.6 (0.2-1.3) mg/dL AST 27 (14-36) U/L ALT 22 (4-34) U/L Alkaline Phosphatase 65 (38-126) U/L Troponin I <0.012 (0.000-0.034) ng/mL Total Protein 7.6 (6.3-8.2) g/dL Albumin 4.8 (3.5-5.0) g/dL Lipase 59 (23-300) U/L Urine Color Yellow Urine Appearance Cloudy H (Clear) Urine pH 6.5 (5.0-8.0) Ur Specific [place] 1.030 (1.001-1.035) Urine Protein 1+ H (Negative) Urine Glucose (UA) Negative (Negative) Urine Ketones Negative (Negative) Urine Blood Small H (Negative) Urine Nitrite Negative (Negative) Urine Bilirubin Negative (Negative) Urine Urobilinogen 2.0 (<2.0) mg/dL Ur Leukocyte Esterase Negative (Negative) Urine RBC 3 (0-5) /hpf Urine WBC 2 (0-5) /hpf Ur Squamous Epith Cells 31 H (0-4) /hpf Urine Bacteria Rare H (None) /hpf Hyaline Casts 3 H (0-2) /lpf Urine Mucus Many H (None) /hpf Stool Occult Blood (Negative) C. difficile (EIA) Intrp (Negative) Blood Type Blood Type Recheck Bld Type Recheck Status Antibody Screen Spec Expiration Date 07/06/22 07/06/22 Range/Units 21:49 21:49 WBC (3.8-10.6) k/uL RBC (3.80-5.40) m/uL Hgb (11.4-16.0) gm/dL Hct (34.0-46.0) % MCV (80.0-100.0) fL MCH (25.0-35.0) pg MCHC (31.0-37.0) g/dL RDW (11.5-15.5) % Plt Count (150-450) k/uL MPV Neutrophils % % Lymphocytes % % Monocytes % % Eosinophils % % Basophils % % Neutrophils # (1.3-7.7) k/uL Lymphocytes # (1.0-4.8) k/uL Monocytes # (0-1.0) k/uL Eosinophils # (0-0.7) k/uL Basophils # (0-0.2) k/uL PT (9.0-12.0) sec INR (<1.2) APTT (22.0-30.0) sec Sodium (137-145) mmol/L Potassium (3.5-5.1) mmol/L Chloride (98-107) mmol/L Carbon Dioxide (22-30) mmol/L Anion Gap mmol/L BUN (7-17) mg/dL Creatinine (0.52-1.04) mg/dL Est GFR (CKD-EPI)AfAm (>60 ml/min/1.73 sqM) Est GFR (CKD-EPI)NonAf (>60 ml/min/1.73 sqM) Glucose (74-99) mg/dL Calcium (8.4-10.2) mg/dL Magnesium (1.6-2.3) mg/dL Total Bilirubin (0.2-1.3) mg/dL AST (14-36) U/L ALT (4-34) U/L Alkaline Phosphatase (38-126) U/L Troponin I (0.000-0.034) ng/mL Total Protein (6.3-8.2) g/dL Albumin (3.5-5.0) g/dL Lipase (23-300) U/L Urine Color Urine Appearance (Clear) Urine pH (5.0-8.0) Ur Specific [place] (1.001-1.035) Urine Protein (Negative) Urine Glucose (UA) (Negative) Urine Ketones (Negative) Urine Blood (Negative) Urine Nitrite (Negative) Urine Bilirubin (Negative) Urine Urobilinogen (<2.0) mg/dL Ur Leukocyte Esterase (Negative) Urine RBC (0-5) /hpf Urine WBC (0-5) /hpf Ur Squamous Epith Cells (0-4) /hpf Urine Bacteria (None) /hpf Hyaline Casts (0-2) /lpf Urine Mucus (None) /hpf Stool Occult Blood Positive H (Negative) C. difficile (EIA) Intrp Negative (Negative) Blood Type Blood Type Recheck Bld Type Recheck Status Antibody Screen Spec Expiration Date - Radiology Data Radiology results: report reviewed, image reviewed CT of the abdomen and pelvis with contrast was obtained. Report was reviewed in its entirety. Impression per Dr. Chavez is fat stranding and wall thickening involving the left colon suggestive of some nonspecific colitis. Normal appendix. Disposition Clinical Impression: Colitis, Bloody diarrhea, Nausea Disposition: HOME SELF-CARE Condition: Stable Instructions (If sedation given, give patient instructions): Colitis (ED) Additional Instructions: Consider BRAT (bananas, rice, applesauce, toast) diet. And an electrolyte solution such as Gatorade, Powerade, or coconut water to your daily intake. Avoid caffeine and raw fruits and veggies. Obtain a probiotic supplement that contains lactobacillus. Follow-up with your PCP for a recheck. Call the office in the morning to schedule an appointment to be seen on Monday. Return to the emergency department with any new, worsening, or concerning symptoms. Prescriptions: Ondansetron Odt [Zofran Odt] 4 mg PO Q8HR PRN #10 tab PRN Reason: Nausea Is patient prescribed a controlled substance at d/c from ED?: No Referrals: Stuart Sahu DO [Primary Care Provider] - 1-2 days Time of Disposition: 21:45
--- NOTE | 2022-07-06 20:51 | CT ---
EXAMINATION TYPE: CT abdomen pelvis w con DATE OF EXAM: 07/06/2022 COMPARISON: None HISTORY: lower abdominal pain CT DLP: 2369.8 mGycm Automated exposure control for dose reduction was used. CONTRAST: Performed with IV Contrast, patient injected with 100 mL of Isovue 300. Images obtained from the diaphragm to the floor the pelvis with the IV contrast. The lung bases are clear of consolidation. No pleural effusion. Heart size is normal. No pericardial effusion. Liver spleen and stomach pancreas and gallbladder appear intact. The bile ducts are not dil ated. There is no adrenal mass. Kidneys show satisfactory contrast opacification. No hydronephrosis. Appendix is lateral and appears normal. Ureters are not dilated. No retroperitoneal adenopathy. Bladder distends smoothly. Uterus is anteverted. There is rounded 3 cm density on the posterior uterine fundus consistent with a fibroid. The lumbar vertebrae have normal alignment. No compression fracture. There is narrowing at L5-S1 disc s. The bony pelvis is intact. The hip joints are intact. There is some fat stranding and wall thickening of the descending colon and proximal sigmoid colon. N o evidence of any significant diverticular disease. No definite free fluid. No free air. No sign of a bowel obstruction. Delayed images show normal renal excretion. IMPRESSION: Fat stranding and wall thickening involving the left colon is suggestive of some nonspecific colitis. Normal appendix.
[2022-07-06] MEDS ORDERED: ONDANSETRON 4 MG ODT STARTER PACK 2 TAB BTL PO STA (21:45)
[2022-07-06 21:51] VITALS: BP 153/107; PULSE 85; TEMP 98
== END 2022-07-06 21:51 | disposition home or self-care (01) ==
LOC: EC 15:06
DX: K52.9 Noninfective gastroenteritis and colitis, unspecified (principal)
CPT/HCPCS: 36415; 86900; 86901; 80053; 83690; 83735; 84484; 85025; 85610; 85730; 86850; 82272; 81001; 87324; 87045; 83630; 87046; 74177; 99285; 96374; 96375; 96376; 96361; J2405; S0119; J1170; Q9967

== ENCOUNTER → 2024-04-26 | Outpatient (CLI) | payer OTHER ==
--- NOTE | 2024-05-22 13:58 | MM ---
Reason for Exam: Screening (asymptomatic). Last mammogram was performed 6 year(s) and 5 month(s) ago. Patient History: Menarche at age 9. First Full-Term at age 24. Risk Values: Jayne 5 year model risk: 0.9%. NCI Lifetime model risk: 9.1%. Prior Study Comparison: 12/06/2017 Bilateral Screening Mammogram, [facility]. Tissue Density: The breasts are almost entirely fatty. Findings: Analyzed By CAD. Right breast: There is no suspicious group of microcalcifications or new suspicious mass. Left breast: There is no suspicious group of microcalcifications or new suspicious mass. Overall Assessment: Negative, BI-RAD 1 Management: Screening Mammogram of both breasts in [address] [facility] will attempt to contact patient to return for supplemental views and ultrasound if indicated. Patient should continue monthly self-breast exams. A clinical breast exam by your physician is recommended on an annual basis. This exam should not preclude additional follow-up of suspicious palpable abnormalities. Note on Jayne scores and lifetime risk: 1. A Jayne score greater than 3% is considered moderate risk. If this is the case, consider specialist referral to assess eligibility for a risk reducing agent. 2. If overall lifetime risk for the development of breast cancer is 20% or higher, the patient may qualify for future screening with alternating mammogram and breast MRI. Electronically signed and approved by: Gustavo Johnson DO
== END | disposition home or self-care (01) ==
LOC: RADMAMWWP 08:42
PROVIDERS: ATTEND Family Medicine
DX: Z12.31 Encounter for screening mammogram for malignant neoplasm of breast (principal)
CPT/HCPCS: 77067

== ENCOUNTER → 2024-06-13 | Outpatient (CLI) | payer OTHER ==
--- NOTE | 2024-06-14 11:42 | XR ---
Thoracic spine HISTORY: Pain with radiculopathy. COMPARISON: None. TECHNIQUE: 2 views of thoracic spine were obtained FINDINGS: The thoracic vertebral segments are normal in height and alignment and there is no fracture or sublux ation. There is minimal anterior spondylosis in the mid and lower thoracic spine but the disc spaces are wel l-maintained. Paraspinal soft tissues unremarkable. IMPRESSION: Evidence for mild degenerative disc disease in the mid-lower thoracic spine with no other significant abnormality seen. [facility], Workstation: [email or web address] 06/14/2024 11:39 AM
--- NOTE | 2024-06-14 11:46 | XR ---
Cervical spine. HISTORY: Neck pain and radiculopathy. COMPARISON: None TECHNIQUE: 6 views of the cervical spine were obtained FINDINGS: The craniovertebral junction relationships and prevertebral soft tissues are normal. The cervical vertebral segments are normal in height and alignment and there is no fracture or sublux ation. There is mild disc space narrowing and spondylosis at the C5-6 and C6-7 levels indicating mild degene rative disease. The uncovertebral joints and facet joints are intact. There is no significant bony neural foraminal s tenosis. IMPRESSION: Mild degenerative disease at the C5-6 and C6-7 levels with no other significant abnormality seen. [facility], Workstation: [facility], 06/14/2024 11:43 AM
== END | disposition home or self-care (01) ==
LOC: RADXRMAIN 11:34
PROVIDERS: ATTEND Family Medicine
CPT/HCPCS: 72050; 72072

== ENCOUNTER → 2024-06-24 | Outpatient (CLI) | payer OTHER | END | disposition home or self-care (01) | LOC: RADECHMAIN 07:58 | PROVIDERS: ATTEND Family Medicine | DX: R00.2 Palpitations (principal) | CPT/HCPCS: 93270 ==